=== PATIENT | female | born 1975 | race Caucasian/White ===

== ENCOUNTER → 2020-12-25 | Outpatient (CLI) | payer BC ==
[2020-12-25 19:44] LABS: Follicle Stimulating Hormone 2.5 mIU/ml; Luteinizing Hormone 5.6 mIU/ml
[2020-12-26 14:08] LABS: HPV 16 Negative (Negative); HPV 18 Negative (Negative); HPV OTHER HR TYPES Negative (Negative)
== END ==
LOC: LAB 18:02 → LAB SHORT 18:02
PROVIDERS: Registered Nurse Community Health
DX: Z12.4 Encounter for screening for malignant neoplasm of cervix (principal); E89.41 Symptomatic postprocedural ovarian failure
CPT/HCPCS: 83001; 83002; 87624; G0123

== ENCOUNTER → 2022-04-02 | Outpatient (CLI) | payer BC ==
[2022-04-02 20:02] LABS: Follicle Stimulating Hormone 44.9 mIU/ml; Luteinizing Hormone 16.3 mIU/ml
== END | disposition home or self-care (01) ==
LOC: LAB 14:30 → LAB SHORT 14:30
PROVIDERS: Registered Nurse Community Health
DX: N95.1 Menopausal and female climacteric states (principal)
CPT/HCPCS: 83001; 83002